=== PATIENT | female | born 1935 | race Caucasian/White ===

== ENCOUNTER 2017-07-26 17:38 | Inpatient (IN) | payer MEDICARE ==
[~2017-07-26] VITALS: Ht 157.5 cm; Wt 69.1 kg
[2017-07-26] MEDS ORDERED: MORPHINE SULFATE 2 MG/ML INJ ONE (17:43)
[2017-07-26 18:00] VITALS: PULSE 82
[2017-07-26] MEDS ORDERED: LACTULOSE SYRUP 20 GM/30 ML CUP PO PRN (18:00)
[2017-07-26] MEDS ORDERED: ONDANSETRON HCL 4 MG/2 ML VIAL IV PUSH PRN (18:00)
[2017-07-26] MEDS ORDERED: BISACODYL 10 MG SUPP RECTAL PRN (18:00)
[2017-07-26] MEDS ORDERED: MISCELLANEOUS NURSING INFORMATION XX SCH (18:00)
[2017-07-26] MEDS ORDERED: CHLORHEXIDINE GLUCONATE 2 % 1 PACK (2 CLOTHS) TOP PRN (18:00)
[2017-07-26] MEDS ORDERED: SENNOSIDES 8.6 MG TAB PO PRN (18:00)
[2017-07-26] MEDS ORDERED: RESP: ALBUTEROL 2.5 MG/IPRATROPIUM 0.5 MG NEB (PRN) INH (18:00)
[2017-07-26] MEDS ORDERED: MAGNESIUM HYDROXIDE SUSP 30 ML CUP PO PRN (18:00)
--- NOTE | 2017-07-26 18:19 | HHI.HP ---
HPI Service Critical Care Medicine Primary Care Physician No Primary Care Physician Admission Diagnosis Traumatic SDH, hypertensive urgency Diagnosis: Chief Complaint: Headache Travel History International Travel<30 Days: No Contact w/Intl Traveler <30 Da: No Traveled to Known Affected Are: No History of Present Illness 81 y/o woman tripped in her garden and hit her forehead. No LOC, syncope, seizures, vomiting. Presented to ED at [facility] in [place] and CT head revealed small right frontal SDH. BP 217/116. Arrived here GCS 15 around 1700. Significant history of carotid occlusive disease including bilateral endarterectomies and left stent. Her sx's were TIAs in the past. She is closely followed by a senior corporate accountant at [facility] who monitors and treats her hypertension and carotid disease. Review of Systems Constitutional: DENIES: Diaphoretic episodes, Fatigue, Fever, Weight gain, Weight loss, Chills, Dizziness, Change in appetite, Night Sweats Endocrine: DENIES: Abnorml menstrual pattern, Heat/cold intolerance, Polydipsia , Polyuria, Polyphagia Eyes: DENIES: Blurred vision, Diplopia, Eye inflammation, Eye pain, Vision loss , Photosensitivity, Double Vision Ears, nose, mouth, throat: DENIES: Tinnitus, Hearing loss, Vertigo, Nasal discharge, Oral lesions, Throat pain, Hoarseness, Ear Pain, Running Nose, Epistaxis, Sinus Pain, Toothache, Odynophagia Respiratory: DENIES: Apneas, Cough, Snoring, Wheezing, Hemoptysis, Sputum production, Shortness of breath Cardiovascular: DENIES: Chest pain, Palpitations, Syncope, Dyspnea on Exertion , PND, Lower Extremity Edema, Orthopnea, Claudication Gastrointestinal: DENIES: Abdominal pain, Black stools, Bloody stools, Constipation, Diarrhea, Nausea, Vomiting, Difficulty Swallowing, Anorexia Integumentary: DENIES: Abnormal pigmentation, Pruritus, Rash, Nail changes, Breast masses, Breast skin changes, Nipple discharge Neurologic: COMPLAINS OF: Headache Past Family Social History Allergies: Coded Allergies: adhesive tape (Verified Allergy, Unknown, 07/26/17) hydromorphone (Verified Allergy, Unknown, 07/26/17) naproxen (Verified Allergy, Unknown, 07/26/17) Uncoded Allergies: Sulfa Drugs (Allergy, Unknown, 07/26/17) Physical Exam Vital Signs Vital Signs Date Time Temp Pulse Resp B/P (MAP) Pulse Ox O2 Delivery O2 Flow Rate FiO2 07/26/17 17:48 14 Physical Exam Gen: Cooperative, alert. Head: Tender occiput region. Neck: Supple, airway widely patent. Left carotid bruit. Lungs: Clear. Heart: NL S1S2. RRR. No JVD. Abdomen: Soft no guarding. Extremities: Warm, well perfused. Neuro: Moves 4 limbs to command with 5/5 power. KIMBERLY, EOMs intact, shoulder shrug, tongue protrusion, smile, grimace normal. O X 3, alert. Speech clear. Caprini VTE Risk Assessment Caprini VTE Risk Assessment: Mod/High Risk (score >= 2) Caprini Risk Assessment Model Point Value = 1 Point Value = 2 Point Value = 3 Point Value = 5 Age 41-60 Minor surgery BMI > 25 kg/m2 Swollen legs Varicose veins or History of unexplained or recurrent spontaneous Oral contraceptives or hormone replacement Sepsis (< 1 month) Serious lung disease, including pneumonia (< 1 month) Abnormal pulmonary function Acute myocardial infarction Congestive heart failure (< 1 month) History of inflammatory bowel disease Medical patient at bed rest Age 61-74 Arthroscopic surgery Major open surgery (> 45 min) Laparoscopic surgery (> 45 min) Malignancy Confined to bed (> 72 hours) Immobilizing plaster cast Central venous access Age >= 75 History of VTE Family history of VTE Factor V Leiden Prothrombin [id number] Lupus anticoagulant Anticardiolipin antibodies Elevated serum homocysteine Heparin-induced thrombocytopenia Other congenital or acquired thrombophilia Stroke (< 1 month) Elective arthroplasty Hip, pelvis, or leg fracture Acute spinal cord injury (< 1 month) Prophylaxis Regimen Total Risk Factor Score Risk Level Prophylaxis Regimen 0-1 Low Early ambulation 2 Moderate Order ONE of the following: *Sequential Compression Device (SCD) *Heparin 5000 units SQ BID 3-4 Higher Order ONE of the following medications: *Heparin 5000 units SQ TID *Enoxaparin/Lovenox 40 mg SQ daily (WT < 150 kg, CrCl > 30 mL/min) *Enoxaparin/Lovenox 30 mg SQ daily (WT < 150 kg, CrCl > 10-29 mL/min) *Enoxaparin/Lovenox 30 mg SQ BID (WT < 150 kg, CrCl > 30 mL/min) AND/OR *Sequential Compression Device (SCD) 5 or more Highest Order ONE of the following medications: *Heparin 5000 units SQ TID (Preferred with Epidurals) *Enoxaparin/Lovenox 40 mg SQ daily (WT < 150 kg, CrCl > 30 mL/min) *Enoxaparin/Lovenox 30 mg SQ daily (WT < 150 kg, CrCl > 10-29 mL/min) *Enoxaparin/Lovenox 30 mg SQ BID (WT < 150 kg, CrCl > 30 mL/min) AND *Sequential Compression Device (SCD) Assessment and Plan Assessment and Plan Assessment: 1. Traumatic SDH. 2. Mechanical fall. 3. Hypertensive urgency. 4. S/P bilateral carotid endarterectomies, left carotid stent. Plan: 1. Neuro checks. 2. Maintain SBP < 160, restart home antihypertensives. 3. BMP a.m. 4. No chemical DVT Px. 5. SCDs. 6. Hold ASA and Cilostazol (Antiplatelet therapy) 7. Repeat head CT a.m. 8. Neurosurgery consult. Overall impression: Traumatic SDH following mechanical fall. We will hold antiplatelet meds tonight, but given the longstanding carotid occlusive disease history and numerous procedures we will restart ASA as soon as reasonable. Adolfo Brown MD Jul 26, 2017 18:19
[2017-07-26] MEDS ORDERED: MORPHINE SULFATE 2 MG/ML INJ IV PUSH PRN (18:45)
--- NOTE | 2017-07-26 19:25 | PD.CONS ---
History of Present Illness Service Neurosurgery Consult Requested By [employer] Agent-Dr. Brown Reason for Consult Right subdural hematoma Primary Care Physician No Primary Care Physician Diagnoses: History of Present Illness Ms. Soliz is an 81-year-old female transferred from [facility] where she presented after she tripped and fell while working in her garden. She struck her forehead but had no loss of consciousness. She has had no seizure activity reported. No emesis. She has been GCS 15 since initial evaluation at [facility] emergency room. She was noted to be hypertensive with systolic blood pressure 217. Review of Systems Constitutional: COMPLAINS OF: Fatigue, DENIES: Fever Eyes: DENIES: Blurred vision, Diplopia Ears, nose, mouth, throat: DENIES: Hearing loss, Vertigo Respiratory: DENIES: Shortness of breath Cardiovascular: DENIES: Chest pain Gastrointestinal: DENIES: Abdominal pain, Nausea Musculoskeletal: COMPLAINS OF: Joint pain, Muscle aches Hematologic/lymphatic: DENIES: Bruising Neurologic: COMPLAINS OF: Headache, DENIES: Abnormal gait Psychiatric: COMPLAINS OF: Confusion Past Family Social History Allergies: Coded Allergies: adhesive tape (Verified Allergy, Unknown, 07/26/17) hydromorphone (Verified Allergy, Unknown, 07/26/17) naproxen (Verified Allergy, Unknown, 07/26/17) Uncoded Allergies: Sulfa Drugs (Allergy, Unknown, 07/26/17) Past Medical History Hypertension Carotid atherosclerotic disease Previous TIA Past Surgical History Bilateral carotid endarterectomy Carotid stent Lumbar laminectomy Reported Medications She states she takes an antihypertensive medication. She cannot tell me the name Family History No significant cardiac disease, diabetes per patient. Social History Does not smoke cigarettes. No significant alcohol use Physical Exam Vital Signs Vital Signs Date Time Temp Pulse Resp B/P (MAP) Pulse Ox O2 Delivery O2 Flow Rate FiO2 07/26/17 18:00 82 07/26/17 17:48 14 Physical Exam GENERAL: This is a well-nourished, well-developed patient, no apparent distress. SKIN: No abrasions, contusion, rash noted. Skin warm and dry. HEAD: Mild tenderness parieto-occipital region EYES: Sclerae are clear and nonicteric ENT: No facial edema or ecchymosis. No periorbital edema. No CSF otorrhea or rhinorrhea. No palpable facial fracture or deformity. NECK: Trachea midline. No cervical spine tenderness. CARDIOVASCULAR: Regular rate and rhythm without murmurs, gallops, or rubs. RESPIRATORY: Clear to auscultation. Breath sounds equal bilaterally. No wheezes , rales, or rhonchi. GASTROINTESTINAL: Abdomen soft, non-tender, nondistended. No hepato-splenomegaly , or palpable masses. No guarding. MUSCULOSKELETAL: Extremities without cyanosis, or edema. No joint tenderness, or edema noted. No calf tenderness. Dorsalis pedis pulses 2+ bilateral NEUROLOGICAL: Awake and alert Oriented X person, hospital, month Speech is somewhat slow but clear Conversant and appropriate Follow simple commands with mild difficulty Answers questions appropriately Diminished judgment and insight Recent and remote memory are mildly impaired. No evidence of anxiety or depression Pupils are equal and reactive to accommodation. Extra-ocular movements, visual barrientos to confrontation, facial sensorimotor, tongue, palate, sternocleidomastoid testing, hearing to finger rub testing, and bilateral shoulder shrug are all intact. Sensation is intact to light touch in all extremities Strength normal major flexion and extension groups all extremities Cyn's absent bilaterally No ankle clonus Plantar responses absent bilateral Fine motor movements intact for her age in the upper extremities Imaging The patient's CT scan of the head from her [facility] images are reviewed by the undersigned. The study reveals a small right frontal acute subdural hematoma without significant mass effect. No definite skull fracture. No pneumocephalus or hydrocephalus. Assessment and Plan Assessment and Plan Impression: Traumatic brain injury HTN Plan: D/W patient and her daughter in [facility] today Continue [facility] neuro checks Non chemical DVT prophylaxis F/U CT Head in AM Continue HTN meds Rene Harrell MD Jul 26, 2017 19:25
[2017-07-26 20:00] VITALS: BP 192/77; PULSE 80; RESP 16; TEMP 99.1; O2SAT 94
[2017-07-26] MEDS: cloNIDine HCL 0.1 MG TAB PO PRN (20:22)
[2017-07-26] MEDS: ACETAMINOPHEN 325 MG TAB PO PRN (20:22)
[2017-07-26] MEDS: FAMOTIDINE 20 MG TAB PO SCH (20:22)
[2017-07-26] MEDS: DOCUSATE SODIUM 50 MG/SENNA 8.6 MG TAB PO SCH (20:22)
[2017-07-26] MEDS: traZODone HCL 50 MG TAB PO SCH (20:22)
[2017-07-26] MEDS: SODIUM CHLOR 0.9% 1000 ML INJ 1,000 ML IV SCH (20:53)
[2017-07-26 22:00] VITALS: PULSE 70
[2017-07-26] MEDS: LABETALOL HCL 100 MG/20 ML VIAL IV PRN (22:55)
[2017-07-27] VITALS (14 sets, daily range): BP systolic 112–153; BP diastolic 53–69; PULSE 61–76; RESP 12–18; TEMP 98.1–98.9; O2SAT 95–100
[2017-07-27] MEDS: CHLORHEXIDINE GLUCONATE 2 % 1 PACK (2 CLOTHS) TOP SCH (04:08)
[2017-07-27] MEDS: ACETAMINOPHEN 325 MG TAB PO PRN (04:25)
[2017-07-27 05:25] LABS: CALCIUM 8.4 MG/DL (8.5-10.1); CREATININE 1.13 MG/DL (0.50-1.00); MAGNESIUM 1.9 MG/DL (1.5-2.5)
--- NOTE | 2017-07-27 05:52 | RADRPT ---
EXAM DATE/TIME: 07/27/2017 05:14 [facility] COMPARISON: No previous studies available for comparison. INDICATIONS : Follow up trauma; frontal hematoma. RADIATION DOSE: 56.35 CTDIvol (mGy) MEDICAL HISTORY : Cardiovascular disease. TBI SURGICAL HISTORY : None. ENCOUNTER: Initial ACUITY: 1 day PAIN SCALE: Non-responsive LOCATION: cranial TECHNIQUE: Multiple contiguous axial images were obtained of the head. Using automated exposure control and adj ustment of the mA and/or kV according to patient size, radiation dose was kept as low as reasonably a chievable to obtain optimal diagnostic quality images. DICOM format image data is available electro nically for review and comparison. FINDINGS: CEREBRUM: There is a right frontal mid convexity extra-axial hematoma, likely subdural measuring 5 mm. Associat ed subarachnoid blood products are noted in the frontoparietal mid to low convexities bilaterally. Th ere is also trace intraventricular blood products. Moderate diffuse cerebral atrophy. The ventricles are normal for degree of atrophy. Moderate periventricular white matter hypodensities. No midline veronica ft. POSTERIOR FOSSA: The cerebellum and brainstem are intact. The 4th ventricle is midline. The cerebellopontine angle i s unremarkable. EXTRACRANIAL: The visualized portion of the orbits is intact. SKULL: The calvaria is intact. No evidence of skull fracture. CONCLUSION: 1. Focal 5 mm right frontal mid convexity extra-axial hematoma, likely subdural. 2. Subarachnoid products in the frontoparietal mid to low convexities bilaterally. 3. Trace intraventricular hemorrhage. 4. No midline shift, hydrocephalus, or herniation. Eris Rose MD on July 27, 2017 at 5:46 Board Certified Radiologist. This report was verified electronically.
[2017-07-27] MEDS ORDERED: SODIUM CHLORID 0.9% 500 ML INJ 500 ML IV ONE (07:30)
[2017-07-27] MEDS: LOSARTAN 50 MG TAB PO SCH (09:00)
[2017-07-27] MEDS: DOCUSATE SODIUM 50 MG/SENNA 8.6 MG TAB PO SCH ×2 (09:18→21:00)
[2017-07-27] MEDS: FAMOTIDINE 20 MG TAB PO SCH ×2 (09:19→21:00)
--- NOTE | 2017-07-27 09:41 | HHI.NSPN ---
(Sadiq Aguilar) History Chief Complaint: Frontal headache (Sadiq Aguilar) Interval History 07/26: Ms. Soliz is an 81-year-old female transferred from [facility] where she presented after she tripped and fell while working in her garden. She struck her forehead but had no loss of consciousness. She has had no seizure activity reported. No emesis. She has been GCS 15 since initial evaluation at [facility] emergency room. She was noted to be hypertensive with systolic blood pressure 217. 07/27: The patient appears asleep but opens her eyes to voice. She says she is doing good but does have a frontal headache across the forehead. She denies any dizziness or double or blurry vision. She denies any pain, numbness, tingling or weakness to the extremities. Upon evaluation the patient is essentially intact but does appear to have some weakness to the right deltoid. She does endorse some photosensitivity when her pupils are examined. (Sadiq Aguilar) Exam Results 07/25/17 07/25/17 07/26/17 07/26/17 07/27/17 07/27/17 06:00 18:00 06:00 18:00 06:00 18:00 Intake Total 0 ml 40 ml Output Total 250 ml Balance -250 ml 40 ml Intake Oral 0 ml 40 ml Output Urine Total 250 ml # Voids 1 Vital Signs Date Time Temp Pulse Resp B/P (MAP) Pulse Ox O2 Delivery O2 Flow Rate FiO2 07/27/17 06:00 61 07/27/17 04:00 70 07/27/17 04:00 98.3 68 18 118/57 (77) 97 07/27/17 02:00 61 07/27/17 02:00 61 07/27/17 00:00 98.9 63 18 112/53 (72) 98 07/27/17 00:00 63 07/27/17 00:00 63 07/26/17 22:00 70 07/26/17 22:00 70 07/26/17 20:00 80 07/26/17 20:00 99.1 80 16 192/77 (115) 94 07/26/17 20:00 80 07/26/17 19:00 96 Nasal Cannula 3.00 07/26/17 18:00 82 07/26/17 17:48 14 (Sadiq Aguilar) Physical Examination GENERAL: Appears asleep but opens eyes to voice. Normal affect. Readily interacts. No apparent distress. HEENT: Normocephalic, atraumatic. PERRLA 3 mm brisk, EOMI. No otorrhea or rhinorrhea noted. MMM & pink, tongue midline to protrusion. MUSCULOSKELETAL: ARAGON spontaneously w/o difficulty. Extremities NTTP. No evident clubbing or deformity. NEUROLOGICAL: AAOx3. Speech clear & appropriate. Follows simple commands w/o difficulty. CN II through XII appear grossly intact. Sensation is intact to light touch to all extremities. Motor strength to the right deltoid appears to be 3/5 o/w 5/5 to all major flexion & extension muscle groups, to include wrist flexors & extensors and hand intrinsics & extrinsics. Weakness may be related to not fully understanding the command but was able to do it with the left but did require repeated coaxing. (Sadiq Aguilar) Lab, Micro, Other Results Recent Impressions Head CT 07/27/17 0600 Signed Impressions: Service Date/Time: July 05:14 - CONCLUSION: 1. Focal 5 mm right frontal mid convexity extra-axial hematoma, likely subdural. 2. Subarachnoid products in the frontoparietal mid to low convexities bilaterally. 3. Trace intraventricular hemorrhage. 4. No midline shift, hydrocephalus, or herniation. Eris Rose MD Laboratory Tests Test 07/27/17 04:22 Blood Urea Nitrogen 9 MG/DL Creatinine 1.13 MG/DL Random Glucose 84 MG/DL Calcium Level 8.4 MG/DL Magnesium Level 1.9 MG/DL Sodium Level 139 MEQ/L Potassium Level 5.0 MEQ/L Chloride Level 105 MEQ/L Carbon Dioxide Level 28.0 MEQ/L Anion Gap 6 MEQ/L Estimat Glomerular Filtration Rate 46 ML/MIN (Sadiq Aguilar) Medical Decision Making Impression and Plan Impression: Traumatic brain injury HTN Patient is doing well this morning and is oriented to person, place & time. There is some questionable right deltoid weakness o/w no sensorimotor deficits are noted. Hypertension improved. Reviewed labs for today. Sodium 139. Decreased renal function. CT brain demonstrates right frontal subdural haematoma, bilateral frontoparietal subarachnoid haemorrhage w/trace intraventricular haemorrhage. No midline shift, hydrocephalus or herniation. 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 Neuro checks. Stat CT brain for any decline in neuro status. Continue antihypertensives. Hold pharmacologic DVT prophylaxis. Mechanical DVT prophylaxis. Stress ulcer prophylaxis. Recommend keeping the patient in ISC for another day. Mobilise patient w/assistance. Physical & Occupational Therapy eval & tx. Heart healthy diet. (Sadiq Aguilar) Attending Statement The exam, history, and the medical decision-making described in the above note were completed with the assistance of the mid-level provider. I reviewed and agree with the findings presented. I attest that I had a [id number] encounter with the patient on the same day, and personally performed and documented my assessment and findings in the medical record. Patient a little less alert on my examination of 07/27/2017 She is sitting up in a chair. Her family is in the room. She is eating a little bit. Complains of persistent headache Speech is slow but clear. A little less conversant today. Remains with mild confusion. Moves all extremities with mostly 3-4/5 strength but not following commands very well. Discussed with family. She does not have a significant focal deficit on today exam. She apparently has some pain medications within the hour prior to examination and has been a little less alert since then. Continue close neurologic checks. Follow-up CT scan pending any significant further decline in neurologic function. Discussed with family in the patient's room on 07/27/2017 (Rene Harrell MD) Sadiq Aguilar Jul 27, 2017 09:41 Rene Harrell MD Jul 28, 2017 20:08
[2017-07-27] MEDS: SODIUM CHLOR 0.9% 1000 ML INJ 1,000 ML IV SCH ×2 (10:39→20:40)
[2017-07-27] MEDS: LABETALOL HCL 100 MG/20 ML VIAL IV PRN ×2 (18:21→23:21)
[2017-07-27] MEDS: traZODone HCL 50 MG TAB PO SCH (21:00)
[2017-07-27] MEDS: cloNIDine HCL 0.1 MG TAB PO PRN (21:08)
[2017-07-28] VITALS (16 sets, daily range): BP systolic 127–163; BP diastolic 59–71; PULSE 56–74; RESP 12–22; TEMP 97.9–98.7; O2SAT 68–98
[2017-07-28] MEDS: CHLORHEXIDINE GLUCONATE 2 % 1 PACK (2 CLOTHS) TOP SCH (03:20)
[2017-07-28] MEDS: LABETALOL HCL 100 MG/20 ML VIAL IV PRN ×2 (04:01→22:53)
[2017-07-28] MEDS: DOCUSATE SODIUM 50 MG/SENNA 8.6 MG TAB PO SCH ×2 (08:13→20:57)
[2017-07-28] MEDS: LOSARTAN 50 MG TAB PO SCH (08:13)
[2017-07-28] MEDS: FAMOTIDINE 20 MG TAB PO SCH ×2 (08:13→20:57)
--- NOTE | 2017-07-28 08:48 | HHI.CCPN ---
Subjective Remarks/Hospital Course Note for 07/27: 81 y/o woman tripped in her garden and hit her forehead. No LOC, syncope, seizures, vomiting. Presented to ED at [facility] in [place] and CT head revealed small right frontal SDH. BP 217/116. Arrived here GCS 15 around 1700. Significant history of carotid occlusive disease including bilateral endarterectomies and left stent. Her sx's were TIAs in the past. She is closely followed by a flame planer at [facility] who monitors and treats her hypertension and carotid disease. 07/27: Headache persists. Neuro exam grossly intact. Objective Vital Signs Date Time Temp Pulse Resp B/P (MAP) Pulse Ox O2 Delivery O2 Flow Rate FiO2 07/28/17 08:20 14 07/28/17 07:27 96 Nasal Cannula 2.00 07/28/17 06:16 61 07/28/17 04:07 98.7 135/71 (92) Intake and Output 07/28/17 07/28/17 07/29/17 08:00 16:00 00:00 Intake Total 240 ml Balance 240 ml Result Diagram: 07/27/17 0422 Objective Remarks Gen: Cooperative, alert. Head: Tender occiput region. Neck: Supple, airway widely patent. Left carotid bruit. Lungs: Clear. Heart: NL S1S2. RRR. No JVD. Abdomen: Soft no guarding. Extremities: Warm, well perfused. Neuro: Moves 4 limbs to command with 5/5 power. KIMBERLY, EOMs intact, shoulder shrug, tongue protrusion, smile, grimace normal. O X 3, alert. Speech clear. A/P Assessment and Plan Assessment: 1. Traumatic SDH. 2. Mechanical fall. 3. Hypertensive urgency. 4. S/P bilateral carotid endarterectomies, left carotid stent. Plan: 1. Neuro checks. 2. Maintain SBP < 160, restart home antihypertensives. 3. BMP a.m. 4. No chemical DVT Px. 5. SCDs. 6. Hold ASA and Cilostazol (Antiplatelet therapy) 7. Repeat head CT a.m. 8. Neurosurgery consult -> done. Overall impression: Traumatic SDH following mechanical fall. We will continue to hold antiplatelet meds tonight, but given the longstanding carotid occlusive disease history and numerous procedures we will restart ASA as soon as reasonable. Adolfo Brown MD Jul 28, 2017 08:47
--- NOTE | 2017-07-28 08:50 | HHI.CCPN ---
Subjective Remarks/Hospital Course Note for 07/28: 81 y/o woman tripped in her garden and hit her forehead. No LOC, syncope, seizures, vomiting. Presented to ED at [facility] in [place] and CT head revealed small right frontal SDH. BP 217/116. Arrived here GCS 15 around 1700. Significant history of carotid occlusive disease including bilateral endarterectomies and left stent. Her sx's were TIAs in the past. 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 07/27: Headache persists. Neuro exam grossly intact. 07/28: Headache persists but she sleeps between medications - will reduce analgesics. Objective Vital Signs Date Time Temp Pulse Resp B/P (MAP) Pulse Ox O2 Delivery O2 Flow Rate FiO2 07/28/17 08:20 14 07/28/17 07:27 96 Nasal Cannula 2.00 07/28/17 06:16 61 07/28/17 04:07 98.7 135/71 (92) Intake and Output 07/28/17 07/28/17 07/29/17 08:00 16:00 00:00 Intake Total 240 ml Balance 240 ml Result Diagram: 07/27/17 0422 Objective Remarks Gen: Cooperative, alert. Head: Tender occiput region. Neck: Supple, airway widely patent. Left carotid bruit. Lungs: Clear. Comfortable pattern, no adventitious sounds. Heart: NL S1S2. RRR. No JVD. Abdomen: Soft no guarding. Extremities: Warm, well perfused. Neuro: Moves 4 limbs to command with 5/5 power. KIMBERLY, EOMs intact, shoulder shrug, tongue protrusion, smile, grimace normal. O X 3, alert. Speech clear. Lethargic from meds. A/P Assessment and Plan Assessment: 1. Traumatic SDH. 2. Mechanical fall. 3. Hypertensive urgency. 4. S/P bilateral carotid endarterectomies, left carotid stent. 5. Headache. Plan: 1. Neuro checks. 2. Maintain SBP < 160, restart home antihypertensives. 3. BMP a.m. 4. No chemical DVT Px. 5. SCDs. 6. Hold ASA and Cilostazol (Antiplatelet therapy) 7. Repeat head CT a.m. 8. Neurosurgery consult -> done. 9. Reduce analgesics. Overall impression: Traumatic SDH following mechanical fall. We will continue to hold antiplatelet meds tonight, but given the longstanding carotid occlusive disease history and numerous procedures we will restart ASA as soon as reasonable. Adolfo Brown MD Jul 28, 2017 08:50
--- NOTE | 2017-07-28 09:53 | HHI.NSPN ---
(Sadiq Aguilar) History Chief Complaint: Frontal headache (Sadiq Aguilar) Interval History 07/26: Ms. Soliz is an 81-year-old female transferred from [facility] where she presented after she tripped and fell while working in her garden. She struck her forehead but had no loss of consciousness. She has had no seizure activity reported. No emesis. She has been GCS 15 since initial evaluation at [facility] emergency room. She was noted to be hypertensive with systolic blood pressure 217. 07/27: The patient appears asleep but opens her eyes to voice. She says she is doing good but does have a frontal headache across the forehead. She denies any dizziness or double or blurry vision. She denies any pain, numbness, tingling or weakness to the extremities. Upon evaluation the patient is essentially intact but does appear to have some weakness to the right deltoid. She does endorse some photosensitivity when her pupils are examined. 07/28: This morning the patient is sitting up in a chair. She says she is doing well. She does have pain that she rates a 5 out of 10 and has ice to the scalp at the crown. She denies any headache, dizziness or double or blurry vision. She also denies any pain, numbness, tingling or weakness to the extremities. The right deltoid is stronger today, otherwise her neuro exam is stable. (Sadiq Aguilar) Exam Results 07/26/17 07/26/17 07/27/17 07/27/17 07/28/17 07/28/17 06:00 18:00 06:00 18:00 06:00 18:00 Intake Total 0 ml 40 ml 1740 ml 240 ml Output Total 250 ml 350 ml Balance -250 ml 40 ml 1390 ml 240 ml Intake Oral 0 ml 40 ml 240 ml 240 ml IV Total 1500 ml Output Urine Total 250 ml 350 ml # Voids 1 2 # Bowel Movements 0 0 Vital Signs Date Time Temp Pulse Resp B/P (MAP) Pulse Ox O2 Delivery O2 Flow Rate FiO2 07/28/17 08:20 14 07/28/17 07:27 96 Nasal Cannula 2.00 07/28/17 07:00 97 Nasal Cannula 2.00 07/28/17 06:16 61 07/28/17 04:07 98.7 69 13 135/71 (92) 68 07/28/17 04:06 69 07/28/17 02:02 74 07/28/17 01:22 74 07/28/17 00:00 98.7 74 17 140/60 (86) 97 07/27/17 22:39 98.6 71 17 153/69 (97) 95 07/27/17 22:02 76 07/27/17 20:33 96 Nasal Cannula 2.00 07/27/17 19:00 96 Nasal Cannula 3.00 07/27/17 18:35 14 07/27/17 18:00 74 07/27/17 16:32 98 Nasal Cannula 2.00 07/27/17 16:00 98.4 68 14 147/67 (93) 98 07/27/17 16:00 68 07/27/17 14:00 67 07/27/17 12:00 64 07/27/17 12:00 98.2 64 12 123/56 (78) 95 07/27/17 10:00 65 07/27/17 08:00 64 07/27/17 08:00 98.1 64 12 114/53 (73) 100 07/27/17 07:00 99 Nasal Cannula 3.00 07/27/17 06:00 61 07/27/17 04:00 70 07/27/17 04:00 98.3 68 18 118/57 (77) 97 07/27/17 02:00 61 07/27/17 02:00 61 07/27/17 00:00 98.9 63 18 112/53 (72) 98 07/27/17 00:00 63 07/27/17 00:00 63 07/26/17 22:00 70 07/26/17 22:00 70 07/26/17 20:00 80 07/26/17 20:00 99.1 80 16 192/77 (115) 94 07/26/17 20:00 80 07/26/17 19:00 96 Nasal Cannula 3.00 07/26/17 18:00 82 07/26/17 17:48 14 (Sadiq Aguilar) Physical Examination GENERAL: Awake & alert, sitting in the chair visiting w/family. Normal affect. Readily interacts. No apparent distress. HEENT: Normocephalic, scalp mildly TTP at the crown and occiput. PERRLA 3 mm brisk, EOMI. MMM & pink, tongue midline to protrusion. MUSCULOSKELETAL: ARAGON spontaneously w/o difficulty. Extremities NTTP. No evident clubbing or deformity. NEUROLOGICAL: AAOx3. Speech clear & appropriate. Follows simple commands w/o difficulty. CN II through XII appear grossly intact. Sensation is intact to light touch to all extremities. Motor strength is 5/5 to all major flexion & extension muscle groups. (Sadiq Aguilar) Lab, Micro, Other Results Recent Impressions Head CT 07/27/17 0600 Signed Impressions: Service Date/Time: July 05:14 - CONCLUSION: 1. Focal 5 mm right frontal mid convexity extra-axial hematoma, likely subdural. 2. Subarachnoid products in the frontoparietal mid to low convexities bilaterally. 3. Trace intraventricular hemorrhage. 4. No midline shift, hydrocephalus, or herniation. Eris Rose MD Laboratory Tests Test 07/27/17 04:22 Blood Urea Nitrogen 9 MG/DL Creatinine 1.13 MG/DL Random Glucose 84 MG/DL Calcium Level 8.4 MG/DL Magnesium Level 1.9 MG/DL Sodium Level 139 MEQ/L Potassium Level 5.0 MEQ/L Chloride Level 105 MEQ/L Carbon Dioxide Level 28.0 MEQ/L Anion Gap 6 MEQ/L Estimat Glomerular Filtration Rate 46 ML/MIN (Sadiq Aguilar) Medical Decision Making Impression and Plan Impression: Traumatic brain injury HTN Patient continues to do well. She is oriented to person, place & time and no sensorimotor deficits are noted. CT brain demonstrates right frontal subdural haematoma, bilateral frontoparietal subarachnoid haemorrhage w/trace intraventricular haemorrhage. No midline shift, hydrocephalus or herniation. Plan: Discussed plan of care w/patient and family. Discussed plan of care w/Nursing. Primary management per Saw Grinder. Neuro checks. Stat CT brain for any decline in neuro status. Continue antihypertensives. Hold pharmacologic DVT prophylaxis. Mechanical DVT prophylaxis. Stress ulcer prophylaxis. Mobilise patient w/assistance. Physical & Occupational Therapy eval & tx. Heart healthy diet. Patient may be transferred to a regular med/surg floor from Neurosurgery's perspective. The patient is able to be discharged either or if medically indicated. She will need to have a repeat CT brain in 2 weeks which may be done through our office if she is still in the [facility] or her PCP if back home in [place]. (Sadiq Aguilar) Attending Statement The exam, history, and the medical decision-making described in the above note were completed with the assistance of the mid-level provider. I reviewed and agree with the findings presented. I attest that I had a [id number] encounter with the patient on the same day, and personally performed and documented my assessment and findings in the medical record. Ms. Soliz is much more alert on my examination of compared to prior day. She is sitting up in a chair again. Awake and alert conversant. Mild slowing of speech, thought processes. Remains with mild confusion but answers most questions appropriately and follows simple commands well. No focal cranial nerve or extremity sensorimotor deficit noted today. Still has headache. Discussed with family and patient in the room on 07/28/2017 Stable for discharge home from neurosurgical standpoint. It would be best to check a CT scan of the head as an outpatient within the next couple of weeks. Signs and symptoms to watch for discussed with the family. All questions answered (Rene Harrell MD) Sadiq Aguilar Jul 28, 2017 09:53 Rene Harrell MD Jul 28, 2017 20:10
[2017-07-28] MEDS: SODIUM CHLOR 0.9% 1000 ML INJ 1,000 ML IV SCH (10:37)
[2017-07-28] MEDS: oxyCODONE/ACETAMINOPHEN 5 MG/325 MG TAB PO PRN ×3 (11:26→22:52)
[2017-07-28] MEDS ORDERED: PILL SPLITTER OTHER PRN (11:30)
[2017-07-28] MEDS ORDERED: SODIUM CHLORIDE 0.65% NASAL DRP/SPRY 30 ML BTL EACH NARE ONE (11:45)
[2017-07-28] MEDS: traZODone HCL 50 MG TAB PO PRN (20:57)
[2017-07-28] MEDS: cloNIDine HCL 0.1 MG TAB PO PRN (22:52)
[2017-07-29] VITALS (18 sets, daily range): BP systolic 148–197; BP diastolic 68–81; PULSE 56–77; RESP 11–24; TEMP 98–98.4; O2SAT 92–97
[2017-07-29] MEDS: CHLORHEXIDINE GLUCONATE 2 % 1 PACK (2 CLOTHS) TOP SCH (03:45)
[2017-07-29] MEDS: SODIUM CHLOR 0.9% 1000 ML INJ 1,000 ML IV SCH (04:21)
[2017-07-29] MEDS: FAMOTIDINE 20 MG TAB PO SCH ×2 (09:07→21:00)
[2017-07-29] MEDS: DOCUSATE SODIUM 50 MG/SENNA 8.6 MG TAB PO SCH ×2 (09:08→21:00)
[2017-07-29] MEDS: LOSARTAN 50 MG TAB PO SCH (09:08)
--- NOTE | 2017-07-29 10:13 | HHI.PR ---
Subjective Remarks in no acute distress. denies headache or pain. BP trend noted. d/w the RN and no acute issues over night. Objective Vitals Vital Signs Date Time Temp Pulse Resp B/P (MAP) Pulse Ox O2 Delivery O2 Flow Rate FiO2 07/29/17 08:15 97 Nasal Cannula 2.00 07/29/17 07:50 68 07/29/17 07:00 98 Nasal Cannula 2.00 07/29/17 04:20 61 18 159/71 (100) 93 07/29/17 04:19 61 07/29/17 02:46 65 07/29/17 00:41 97 Nasal Cannula 2.00 07/29/17 00:06 98.0 69 15 161/70 (100) 97 07/29/17 00:06 70 07/28/17 22:03 65 07/28/17 21:54 97.9 70 22 163/70 (101) 96 07/28/17 21:53 66 07/28/17 21:51 98 Nasal Cannula 2.00 07/28/17 18:00 56 07/28/17 16:00 66 07/28/17 16:00 98.6 66 12 140/65 (90) 94 07/28/17 14:00 62 07/28/17 12:35 15 07/28/17 12:00 98.4 62 18 131/60 (83) 98 07/28/17 12:00 62 I/O 07/28/17 07/28/17 07/28/17 07/29/17 07/29/17 07/29/17 07:00 15:00 23:00 07:00 15:00 23:00 Intake Total 240 ml 480 ml 240 ml Output Total 350 ml Balance 240 ml 130 ml 240 ml Intake Oral 240 ml 480 ml 240 ml Output Urine Total 350 ml # Voids 2 1 2 # Bowel Movements 0 0 Result Diagram: 07/27/17 0422 Imaging Last Impressions Head CT 07/27/17 0600 Signed Impressions: Service Date/Time: July 05:14 - CONCLUSION: 1. Focal 5 mm right frontal mid convexity extra-axial hematoma, likely subdural. 2. Subarachnoid products in the frontoparietal mid to low convexities bilaterally. 3. Trace intraventricular hemorrhage. 4. No midline shift, hydrocephalus, or herniation. Eris Rose MD Objective Remarks GENERAL: This is a well-nourished, well-developed patient, in no apparent distress. CARDIOVASCULAR: Regular rate and regular rhythm without murmurs, gallops, or rubs. RESPIRATORY: Clear to auscultation. Breath sounds equal bilaterally. No wheezes , rales, or rhonchi. GASTROINTESTINAL: Abdomen soft, non-tender, nondistended. Normal, active bowel sounds MUSCULOSKELETAL: Extremities without clubbing, cyanosis, or edema. NEURO: awake and alert. Medications and IVs Inpatient Medications Acetaminophen (Tylenol) 650 mg Q6H PRN PO PAIN 1-3 AND/OR FEVER >101F Last administered on 07/27/17at 04:25; Start 07/26/17 at 18:00 Albuterol/ Ipratropium (Duoneb Neb) 1 ampule Q4HR NEB PRN INH WHEEZING; Start 07/26/17 at 18:00 Bisacodyl (Dulcolax Supp) 10 mg DAILY PRN RECTAL SEVERE CONSITIPATION; Start at 18:00 Chlorhexidine Gluconate (Chlorhexidine 2% Cloth) 3 pack UNSCH PRN TOP HYGIENIC CARE; Start 07/26/17 at 18:00 Clonidine (Catapres) 0.1 mg Q6H PRN PO SBP > 160 Last administered on 07/28/17at 22:52; Start 07/26/17 at 19:00 Famotidine (Pepcid) 10 mg Q12HR PO Last administered on 07/29/17at 09:07; Start 07/27/17 at 21:00 Fentanyl Citrate (fentaNYL INJ) 50 mcg Q1H PRN IV PUSH Pain scale 8-10 &/or sedation Last administered on 07/29/17 05:05; Start 07/26/17 at 18:00 Labetalol HCl (Trandate Inj) 20 mg Q2H PRN IV SBP > 160` Last administered on at 22:53; Start 07/26/17 at 22:45 Lactulose (Lactulose Liq) 30 ml DAILY PRN PO SEVERE CONSITIPATION; Start at 18:00 Losartan Potassium (Cozaar) 100 mg DAILY PO Last administered on 07/29/17at 09:08 ; Start 07/27/17 at 09:00 Magnesium Hydroxide (Milk Of Vero Liq) 30 ml Q12H PRN PO Mild constipation ; Start 07/26/17 at 18:00 Miscellaneous (Pill Splitter) 1 ea UNSCH PRN OTHER SEE LABEL COMMENTS; Start at 11:30 Miscellaneous Information 1 Q361D XX Last administered on 07/26/17at 18:00; Start 07/26/17 at 18:00 Morphine Sulfate (Morphine Inj) 2 mg Q2H PRN IV PUSH PAIN SCALE 4 TO 7 Last administered on 07/28/17at 08:14; Start 07/26/17 at 18:45; Stop 07/28/17 at 08:46; Status DC Ondansetron HCl (Zofran Inj) 4 mg Q6H PRN IV PUSH NAUSEA OR VOMITING; Start at 18:00 Oxycodone/ Acetaminophen (Percocet 5-325 Mg) 1 tab Q6H PRN PO Pain 6-10 Last administered on 07/28/17at 22:52; Start 07/28/17 at 11:30 Senna/Docusate Sodium ([place]-Colace) 1 tab BID PO Last administered on 07/29/17at 09:08; Start 07/26/17 at 21:00 Sennosides (Senokot) 17.2 mg Q12H PRN PO Moderate constipation; Start 07/26/17 at 18:00 Sodium Chloride (Baby [place] Saline 0.65% Malcolm Drp/ [place]) 6 drop ONCE ONCE EACH NARE ; Start 07/28/17 at 11:45; Stop 07/28/17 at 13:45; Status DC Trazodone HCl (Desyrel) 25 mg HS PRN PO insomnia Last administered on 07/28/17at 20:57; Start 07/28/17 at 21:00 A/P Assessment and Plan A/P 1. Traumatic SDH/2. Mechanical fall. continue with neuro-checks- cleared by neurosurgery for discharge with repeat CT head in two weeks. continue PT. 2. Hypertensive urgency- improved but BP still not well controlled. continue Losartan- add amlodipine and continue to monitor and adjust the regimen as needed. 3. S/P bilateral carotid endarterectomies, left carotid stent. DVT prophylaxis with SCD's- no chemical prophylaxis due to cerebral bleed. transfer to telemetry. Discharge Planning dc home tomorrow if BP better. case management for HHC. Trung Tran MD Jul 29, 2017 10:13
--- NOTE | 2017-07-29 10:14 | HHI.FF ---
Face to Face Verification Diagnosis: (1) Subdural hematoma Physical Therapy Order: Evaluate and Treat Occupational Therapy Order: Evaluate and Treat Home Health Nursing Order: Medical education Signs/symptoms of disease process Medication education-adverse effect Nursing assessment with vital signs I have seen patient Suzanne Soliz on 07/29/17. My clinical findings support the need for the requested home health care services because: Ltd mobility - disease progression I certify that my clinical findings support that this patient is homebound because: Unsteady gait/balance Trung Tran MD Jul 29, 2017 10:14
[2017-07-29] MEDS ORDERED: amLODIPine BESYLATE 5 MG TAB PO SCH (10:15)
[2017-07-29] MEDS: oxyCODONE/ACETAMINOPHEN 5 MG/325 MG TAB PO PRN ×3 (10:15→23:46)
--- NOTE | 2017-07-29 11:10 | HHI.NSPN ---
(Jamee Laughlin) Note Status Status: Progress Note (Jamee Laughlin) Interval History Interval History 07/26: Ms. Soliz is an 81-year-old female transferred from [facility] where she presented after she tripped and fell while working in her garden. She struck her forehead but had no loss of consciousness. She has had no seizure activity reported. No emesis. She has been GCS 15 since initial evaluation at [facility] emergency room. She was noted to be hypertensive with systolic blood pressure 217. 07/27: The patient appears asleep but opens her eyes to voice. She says she is doing good but does have a frontal headache across the forehead. She denies any dizziness or double or blurry vision. She denies any pain, numbness, tingling or weakness to the extremities. Upon evaluation the patient is essentially intact but does appear to have some weakness to the right deltoid. She does endorse some photosensitivity when her pupils are examined. 07/28: This morning the patient is sitting up in a chair. She says she is doing well. She does have pain that she rates a 5 out of 10 and has ice to the scalp at the crown. She denies any headache, dizziness or double or blurry vision. She also denies any pain, numbness, tingling or weakness to the extremities. The right deltoid is stronger today, otherwise her neuro exam is stable. 07/29: sitting up in chair, some headaches, but ambulated today per family. blood pressure still elevated (Jamee Laughlin) Labs, Micro, & Vital Signs Results Date Time Temp Pulse Resp B/P (MAP) Pulse Ox O2 Delivery O2 Flow Rate FiO2 07/29/17 09:00 65 24 174/74 (107) 97 07/29/17 08:15 97 Nasal Cannula 2.00 07/29/17 08:00 98.1 65 13 197/77 (117) 97 07/29/17 08:00 65 07/29/17 07:50 68 07/29/17 07:00 98 Nasal Cannula 2.00 07/29/17 04:20 61 18 159/71 (100) 93 07/29/17 04:19 61 07/29/17 02:46 65 07/29/17 00:41 97 Nasal Cannula 2.00 07/29/17 00:06 98.0 69 15 161/70 (100) 97 07/29/17 00:06 70 07/28/17 22:03 65 07/28/17 21:54 97.9 70 22 163/70 (101) 96 07/28/17 21:53 66 07/28/17 21:51 98 Nasal Cannula 2.00 07/28/17 18:00 56 07/28/17 16:00 66 07/28/17 16:00 98.6 66 12 140/65 (90) 94 07/28/17 14:00 62 07/28/17 12:35 15 07/28/17 12:00 98.4 62 18 131/60 (83) 98 07/28/17 12:00 62 07/30/17 07:00 Intake Total 240 ml Balance 240 ml Constitutional Vital Signs Date Time Temp Pulse Resp B/P (MAP) Pulse Ox O2 Delivery O2 Flow Rate FiO2 07/29/17 09:00 65 24 174/74 (107) 97 07/29/17 08:15 97 Nasal Cannula 2.00 07/29/17 08:00 98.1 65 13 197/77 (117) 97 07/29/17 08:00 65 07/29/17 07:50 68 07/29/17 07:00 98 Nasal Cannula 2.00 07/29/17 04:20 61 18 159/71 (100) 93 07/29/17 04:19 61 07/29/17 02:46 65 07/29/17 00:41 97 Nasal Cannula 2.00 07/29/17 00:06 98.0 69 15 161/70 (100) 97 07/29/17 00:06 70 07/28/17 22:03 65 07/28/17 21:54 97.9 70 22 163/70 (101) 96 07/28/17 21:53 66 07/28/17 21:51 98 Nasal Cannula 2.00 07/28/17 18:00 56 07/28/17 16:00 66 07/28/17 16:00 98.6 66 12 140/65 (90) 94 07/28/17 14:00 62 07/28/17 12:35 15 07/28/17 12:00 98.4 62 18 131/60 (83) 98 07/28/17 12:00 62 07/30/17 07:00 Intake Total 240 ml Balance 240 ml (Jamee Laughlin) Review of Systems Constitutional: DENIES: Fever Cardiovascular: DENIES: Chest pain Neurologic: COMPLAINS OF: Headache, DENIES: Localized weakness, Paresthesias, Seizures (Jamee Laughlin) Physical Exam GENERAL: Awake & alert, sitting in the chair w/family. Normal affect. Readily interacts. No apparent distress. HEENT: Normocephalic, scalp mildly TTP at the crown and occiput. PERRLA 3 mm brisk, EOMI. MMM & pink, tongue midline to protrusion. MUSCULOSKELETAL: ARAGON spontaneously w/o difficulty. Extremities NTTP. No evident clubbing or deformity. NEUROLOGICAL: AAOx3. Speech clear & appropriate. Follows simple commands w/o difficulty. CN II through XII appear grossly intact. Sensation is intact to light touch to all extremities. Motor strength is 5/5 to all major flexion & extension muscle groups. (Jamee Laughlin) GENERAL: Awake & alert, sitting in the chair w/family. Normal affect. Readily interacts. No apparent distress. HEENT: Normocephalic, scalp mildly TTP at the crown and occiput. PERRLA 3 mm brisk, EOMI. MMM & pink, tongue midline to protrusion. MUSCULOSKELETAL: ARAGON spontaneously w/o difficulty. Extremities NTTP. No evident clubbing or deformity. NEUROLOGICAL: AAOx3. Speech clear & appropriate. Follows simple commands w/o difficulty. CN II through XII appear grossly intact. Sensation is intact to light touch to all extremities. Motor strength is 5/5 to all major flexion & extension muscle groups. (Jorgito Crystal MD) Medications Current Medications Current Medications Medications (Trade) Dose Ordered Sig/Franco Route PRN Reason Start Time Stop Time Status Last Admin Dose Admin Sodium Chloride 1,000 ml @ 50 mls/hr Q20H IV 07/26/17 18:00 07/27/17 20:40 Acetaminophen (Tylenol) 650 mg Q6H PRN PO PAIN 1-3 AND/OR FEVER >101F 2/28/18 18:00 07/27/17 04:25 Fentanyl Citrate (fentaNYL INJ) 50 mcg Q1H PRN IV PUSH Pain scale 8-10 &/or sedation 07/26/17 18:00 07/29/17 05:05 Ondansetron HCl (Zofran Inj) 4 mg Q6H PRN IV PUSH NAUSEA OR VOMITING 07/26/17 18:00 Albuterol/ Ipratropium (Duoneb Neb) 1 ampule Q4HR NEB PRN INH WHEEZING 07/26/17 18:00 Miscellaneous Information 1 Q361D XX 07/26/17 18:00 07/26/17 18:00 Chlorhexidine Gluconate (Chlorhexidine 2% Cloth) 3 pack Taper DAILY@04 TOP 07/27/17 04:00 07/23/18 03:59 07/27/17 04:08 Chlorhexidine Gluconate (Chlorhexidine 2% Cloth) 3 pack UNSCH PRN TOP HYGIENIC CARE 07/26/17 18:00 Senna/Docusate Sodium (Halima-Colace) 1 tab BID PO 07/26/17 21:00 07/29/17 09:08 Magnesium Hydroxide (Milk Of Magnesia Liq) 30 ml Q12H PRN PO Mild constipation 07/26/17 18:00 Sennosides (Senokot) 17.2 mg Q12H PRN PO Moderate constipation 07/26/17 18:00 Bisacodyl (Dulcolax Supp) 10 mg DAILY PRN RECTAL SEVERE CONSITIPATION 07/26/17 18:00 Lactulose (Lactulose Liq) 30 ml DAILY PRN PO SEVERE CONSITIPATION 07/26/17 18:00 Losartan Potassium (Cozaar) 100 mg DAILY PO 07/27/17 09:00 07/29/17 09:08 Clonidine (Catapres) 0.1 mg Q6H PRN PO SBP > 160 07/26/17 19:00 07/28/17 22:52 Labetalol HCl (Trandate Inj) 20 mg Q2H PRN IV SBP > 160` 07/26/17 22:45 07/28/17 22:53 Famotidine (Pepcid) 10 mg Q12HR PO 07/27/17 21:00 07/29/17 09:07 Trazodone HCl (Desyrel) 25 mg HS PRN PO insomnia 07/28/17 21:00 07/28/17 20:57 Oxycodone/ Acetaminophen (Percocet 5-325 Mg) 1 tab Q6H PRN PO Pain 6-10 07/28/17 11:30 07/29/17 10:15 Miscellaneous (Pill Splitter) 1 ea UNSCH PRN OTHER SEE LABEL COMMENTS 07/28/17 11:30 Amlodipine Besylate (Norvasc) 5 mg DAILY PO 07/29/17 10:15 (Jamee Laughlin) Current Medications Current Medications Morphine Sulfate (Morphine Inj) 2 mg STK-MED ONCE .ROUTE Last administered on at 17:43; Start 07/26/17 at 17:43; Stop 07/26/17 at 17:44; Status DC Sodium Chloride 1,000 ml @ 50 mls/hr Q20H IV Last administered on 07/27/17at 20: 40; Start 07/26/17 at 18:00 Acetaminophen (Tylenol) 650 mg Q6H PRN PO PAIN 1-3 AND/OR FEVER >101F Last administered on 07/31/17at 05:49; Start 07/26/17 at 18:00 Morphine Sulfate (Morphine Inj) 2 mg Q2H PRN IV PUSH PAIN SCALE 4 TO 7 Last administered on 07/28/17at 08:14; Start 07/26/17 at 18:45; Stop 07/28/17 at 08:46; Status DC Fentanyl Citrate (fentaNYL INJ) 50 mcg Q1H PRN IV PUSH Pain scale 8-10 &/or sedation Last administered on 07/29/17at 05:05; Start 07/26/17 at 18:00 Famotidine (Pepcid) 20 mg Q12HR PO Last administered on 07/27/17at 09:19; Start 07/26/17 at 21:00; Stop 07/27/17 at 11:40; Status DC Ondansetron HCl (Zofran Inj) 4 mg Q6H PRN IV PUSH NAUSEA OR VOMITING; Start at 18:00 Albuterol/ Ipratropium (Duoneb Neb) 1 ampule Q4HR NEB PRN INH WHEEZING; Start 07/26/17 at 18:00 Miscellaneous Information 1 Q361D XX Last administered on 07/26/17 18:00; Start 07/26/17 at 18:00 Chlorhexidine Gluconate (Chlorhexidine 2% Cloth) 3 pack Taper DAILY@04 TOP Last administered on 07/27/17 04:08; Start 07/27/17 at 04:00; Stop 07/23/18 at 03 :59 Chlorhexidine Gluconate (Chlorhexidine 2% Cloth) 3 pack UNSCH PRN TOP HYGIENIC CARE; Start 07/26/17 at 18:00 Senna/Docusate Sodium (Halima-Colace) 1 tab BID PO Last administered on 07/31/17 09:12; Start 07/26/17 at 21:00 Magnesium Hydroxide (Milk Of Magnesia Liq) 30 ml Q12H PRN PO Mild constipation Last administered on 07/31/17 09:27; Start 07/26/17 at 18:00 Sennosides (Senokot) 17.2 mg Q12H PRN PO Moderate constipation Last administered on 07/29/17 18:14; Start 07/26/17 at 18:00 Bisacodyl (Dulcolax Supp) 10 mg DAILY PRN RECTAL SEVERE CONSITIPATION; Start at 18:00 Lactulose (Lactulose Liq) 30 ml DAILY PRN PO SEVERE CONSITIPATION; Start at 18:00 Losartan Potassium (Cozaar) 100 mg DAILY PO Last administered on 07/31/17 09:14 ; Start 07/27/17 at 09:00 Trazodone HCl (Desyrel) 50 mg HS PO Last administered on 07/27/17 21:00; Start 07/26/17 at 21:00; Stop 07/28/17 at 08:46; Status DC Clonidine (Catapres) 0.1 mg Q6H PRN PO SBP > 160 Last administered on 07/31/17 09:13; Start 07/26/17 at 19:00 Labetalol HCl (Trandate Inj) 20 mg Q2H PRN IV SBP > 160` Last administered on 16:07; Start 07/26/17 at 22:45 Sodium Chloride 500 ml @ 999 mls/hr Q31M ONCE IV Last administered on 3/1/ 18at 06:45; Start 07/27/17 at 07:30; Stop 07/27/17 at 08:00; Status DC Famotidine (Pepcid) 10 mg Q12HR PO Last administered on 07/31/17at 09:15; Start 07/27/17 at 21:00 Trazodone HCl (Desyrel) 25 mg HS PRN PO insomnia Last administered on 07/31/17at 00:22; Start 07/28/17 at 21:00 Oxycodone/ Acetaminophen (Percocet 5-325 Mg) 1 tab Q6H PRN PO Pain 6-10 Last administered on 07/31/17at 09:27; Start 07/28/17 at 11:30 Miscellaneous (Pill Splitter) 1 ea UNSCH PRN OTHER SEE LABEL COMMENTS; Start at 11:30 Sodium Chloride (Baby [place] Saline 0.65% Malcolm Drp/ [place]) 6 drop ONCE ONCE EACH NARE ; Start 07/28/17 at 11:45; Stop 07/28/17 at 13:45; Status DC Amlodipine Besylate (Norvasc) 5 mg DAILY PO Last administered on 07/29/17at 11:37 ; Start 07/29/17 at 10:15; Stop 07/30/17 at 08:36; Status DC Nifedipine (Procardia Xl) 30 mg DAILY PO Last administered on 07/31/17at 09:13; Start 07/30/17 at 09:00 (Jorgito Crystal MD) Medical Decision Making MDM Remarks 81 y/o female Traumatic brain injury HTN CT brain demonstrates right frontal subdural hematoma, bilateral frontoparietal subarachnoid hemorrhage w/trace intraventricular hemorrhage. No midline shift, hydrocephalus or herniation. (Jamee Laughlin) Plan Plan Remarks cont medical management - blood pressure control stable for discharge home from neurosurgical standpoint when medically cleared outpatient f/u CT scan of the head next couple of weeks dw family in room (Jamee Laughlin) Attending Statement Continue neuro checks in a serial fashion. Continue nonsurgical management of traumatic brain injury. I have reviewed her radiological studies Continue treatment of her arterial hypertension Pulmonary. Continue aggressive pulmonary toilette, nasotracheal suction, and breathing treatments with nebulizers. Daily PT and OT Renal. Continue to monitor closely urine output, BUN and creatinine Endocrine. Continue to Monitor serial Acu checks and SSI as needed in detail ID continue to monitor for signs of infection Continue Protonix for stress ulcer prophylaxis Continue Luciano hose and SCD's for DVT prophylaxis Further recommendations will be provided depending on the patient's clinical evaluation and follow up studies. The exam, history, and the medical decision-making described in the above note were completed with the assistance of the mid-level provider. I reviewed and agree with the findings presented. I attest that I had a [id number] encounter with the patient on the same day, and personally performed and documented my assessment and findings in the medical record. (Jorgito Crystal MD) Jamee Laughlin Jul 29, 2017 11:10 Jorgito Crystal MD Jul 31, 2017 12:42
[2017-07-29] MEDS: ACETAMINOPHEN 325 MG TAB PO PRN ×2 (14:39→21:33)
[2017-07-29 15:35] LABS: AUTOMATED NEUTROPHIL # 6.8 TH/MM3 (1.8-7.7); BASOPHIL # 0.1 TH/MM3 (0-0.2); BASOPHIL % 1.2 % (0.0-2.0); EOSINOPHIL # 0.4 TH/MM3 (0-0.4); EOSINOPHIL % 3.8 % (0.0-4.0); HEMATOCRIT 34.7 % (35.0-46.0); HEMOGLOBIN 12.4 GM/DL (11.6-15.3); LYMPH % 15.3 % (9.0-44.0); LYMPHOCYTE # 1.5 TH/MM3 (1.0-4.8); MEAN CELL VOLUME 93.4 FL (80.0-100.0); MEAN CORPUSCULAR HEMOGLOBIN 33.3 PG (27.0-34.0); MEAN CORPUSCULAR HGB CONC 35.7 % (32.0-36.0); MONO % 10.9 % (0.0-8.0); MONOCYTE # 1.1 TH/MM3 (0-0.9); NEUT % 68.8 % (16.0-70.0); PLATELET COUNT 174 TH/MM3 (150-450); RED BLOOD COUNT 3.72 MIL/MM3 (4.00-5.30); RED CELL DISTRIBUTION WIDTH 13.2 % (11.6-17.2); WHITE BLOOD COUNT 9.9 TH/MM3 (4.0-11.0)
[2017-07-29] MEDS: LABETALOL HCL 100 MG/20 ML VIAL IV PRN (16:07)
[2017-07-29] MEDS: traZODone HCL 50 MG TAB PO PRN (21:33)
[2017-07-29] MEDS: cloNIDine HCL 0.1 MG TAB PO PRN (23:46)
[2017-07-30] VITALS (9 sets, daily range): BP systolic 124–198; BP diastolic 60–89; PULSE 60–75; RESP 18; TEMP 97.5–99.7; O2SAT 95–96
[2017-07-30] MEDS: SODIUM CHLOR 0.9% 1000 ML INJ 1,000 ML IV SCH ×2 (02:11→19:37)
[2017-07-30] MEDS: CHLORHEXIDINE GLUCONATE 2 % 1 PACK (2 CLOTHS) TOP SCH (02:12)
[2017-07-30] MEDS: cloNIDine HCL 0.1 MG TAB PO PRN ×2 (05:41→18:12)
[2017-07-30] MEDS: ACETAMINOPHEN 325 MG TAB PO PRN ×2 (06:22→13:00)
--- NOTE | 2017-07-30 08:39 | HHI.PR ---
Subjective Remarks in no acute distress. denies pain or headache. BP trend noted. daughter at the bedside. d/w the RN. Objective Vitals Vital Signs Date Time Temp Pulse Resp B/P (MAP) Pulse Ox O2 Delivery O2 Flow Rate FiO2 07/30/17 08:00 98.6 68 18 175/73 (107) 95 07/30/17 05:40 97.5 73 18 196/88 (124) 96 07/30/17 01:26 143/60 (87) 07/29/17 23:43 98.4 77 18 185/81 (115) 94 07/29/17 22:21 93 Room Air 07/29/17 21:41 98.0 73 17 172/72 (105) 94 07/29/17 21:36 93 Room Air 07/29/17 20:45 93 21 07/29/17 17:15 16 07/29/17 16:01 20 07/29/17 16:00 98.3 69 18 164/70 (101) 92 07/29/17 15:00 64 07/29/17 12:00 98.1 66 14 153/69 (97) 97 07/29/17 11:00 56 11 176/77 (110) 97 07/29/17 10:00 60 19 148/68 (94) 97 07/29/17 10:00 65 07/29/17 09:00 65 24 174/74 (107) 97 I/O 07/29/17 07/29/17 07/29/17 07/30/17 07/30/17 07/30/17 07:00 15:00 23:00 07:00 15:00 23:00 Intake Total 240 ml 500 ml Balance 240 ml 500 ml Intake Oral 240 ml 500 ml # Voids 2 4 2 # Bowel Movements 0 Result Diagram: 07/29/17 1516 07/27/17 0422 Imaging Last Impressions Head CT 07/27/17 0600 Signed Impressions: Service Date/Time: July 05:14 - CONCLUSION: 1. Focal 5 mm right frontal mid convexity extra-axial hematoma, likely subdural. 2. Subarachnoid products in the frontoparietal mid to low convexities bilaterally. 3. Trace intraventricular hemorrhage. 4. No midline shift, hydrocephalus, or herniation. Eris Rose MD Objective Remarks GENERAL: This is a well-nourished, well-developed patient, in no apparent distress. CARDIOVASCULAR: Regular rate and regular rhythm without murmurs, gallops, or rubs. RESPIRATORY: Clear to auscultation. Breath sounds equal bilaterally. No wheezes , rales, or rhonchi. GASTROINTESTINAL: Abdomen soft, non-tender, nondistended. Normal, active bowel sounds MUSCULOSKELETAL: Extremities without clubbing, cyanosis, or edema. NEURO: awake and alert. Medications and IVs Inpatient Medications Acetaminophen (Tylenol) 650 mg Q6H PRN PO PAIN 1-3 AND/OR FEVER >101F Last administered on 07/30/17 06:22; Start 07/26/17 at 18:00 Albuterol/ Ipratropium (Duoneb Neb) 1 ampule Q4HR NEB PRN INH WHEEZING; Start 07/26/17 at 18:00 Amlodipine Besylate (Norvasc) 5 mg DAILY PO Last administered on 07/29/17at 11:37 ; Start 07/29/17 at 10:15 Bisacodyl (Dulcolax Supp) 10 mg DAILY PRN RECTAL SEVERE CONSITIPATION; Start at 18:00 Chlorhexidine Gluconate (Chlorhexidine 2% Cloth) 3 pack UNSCH PRN TOP HYGIENIC CARE; Start 07/26/17 at 18:00 Clonidine (Catapres) 0.1 mg Q6H PRN PO SBP > 160 Last administered on 07/30/17at 05:41; Start 07/26/17 at 19:00 Famotidine (Pepcid) 10 mg Q12HR PO Last administered on 07/29/17at 21:00; Start 07/27/17 at 21:00 Fentanyl Citrate (fentaNYL INJ) 50 mcg Q1H PRN IV PUSH Pain scale 8-10 &/or sedation Last administered on 07/29/17 05:05; Start 07/26/17 at 18:00 Labetalol HCl (Trandate Inj) 20 mg Q2H PRN IV SBP > 160` Last administered on at 16:07; Start 07/26/17 at 22:45 Lactulose (Lactulose Liq) 30 ml DAILY PRN PO SEVERE CONSITIPATION; Start at 18:00 Losartan Potassium (Cozaar) 100 mg DAILY PO Last administered on 07/29/17 09:08 ; Start 07/27/17 at 09:00 Magnesium Hydroxide (Milk Of Magnfrancoise Liq) 30 ml Q12H PRN PO Mild constipation ; Start 07/26/17 at 18:00 Miscellaneous (Pill Splitter) 1 ea UNSCH PRN OTHER SEE LABEL COMMENTS; Start at 11:30 Miscellaneous Information 1 Q361D XX Last administered on 07/26/17at 18:00; Start 07/26/17 at 18:00 Morphine Sulfate (Morphine Inj) 2 mg Q2H PRN IV PUSH PAIN SCALE 4 TO 7 Last administered on 07/28/17 08:14; Start 07/26/17 at 18:45; Stop 07/28/17 at 08:46; Status DC Ondansetron HCl (Zofran Inj) 4 mg Q6H PRN IV PUSH NAUSEA OR VOMITING; Start at 18:00 Oxycodone/ Acetaminophen (Percocet 5-325 Mg) 1 tab Q6H PRN PO Pain 6-10 Last administered on 07/29/17at 23:46; Start 07/28/17 at 11:30 Senna/Docusate Sodium (Halima-Colace) 1 tab BID PO Last administered on 07/29/17 21:00; Start 07/26/17 at 21:00 Sennosides (Senokot) 17.2 mg Q12H PRN PO Moderate constipation Last administered on 07/29/17 18:14; Start 07/26/17 at 18:00 Sodium Chloride (Baby [place] Saline 0.65% [facility]/ [place]) 6 drop ONCE ONCE EACH NARE ; Start 07/28/17 at 11:45; Stop 07/28/17 at 13:45; Status DC Trazodone HCl (Desyrel) 25 mg HS PRN PO insomnia Last administered on 07/29/17at 21:33; Start 07/28/17 at 21:00 A/P Assessment and Plan A/P 1. Traumatic SDH/2. Mechanical fall. continue with neuro-checks- cleared by neurosurgery for discharge with repeat CT head in two weeks. continue PT. 2. Hypertensive urgency- improved but BP still not well controlled. continue Losartan- stop Amlodipine and start on Procardia XL. will continue to monitor and adjust the regimen as needed. 3. S/P bilateral carotid endarterectomies, left carotid stent. DVT prophylaxis with SCD's- no chemical prophylaxis due to cerebral bleed. Discharge Planning not ready for discharge today; BP still uncontrolled. dc home tomorrow if BP better. case management for [facility]. Trung Tran MD Jul 30, 2017 08:39
[2017-07-30] MEDS: LOSARTAN 50 MG TAB PO SCH (09:19)
[2017-07-30] MEDS: NIFEdipine 30 MG SUSTAINED RELEASE TAB PO SCH (09:19)
[2017-07-30] MEDS: DOCUSATE SODIUM 50 MG/SENNA 8.6 MG TAB PO SCH ×2 (09:19→19:35)
[2017-07-30] MEDS: FAMOTIDINE 20 MG TAB PO SCH ×2 (09:19→19:34)
[2017-07-30] MEDS: oxyCODONE/ACETAMINOPHEN 5 MG/325 MG TAB PO PRN (19:36)
[2017-07-31] VITALS (7 sets, daily range): BP systolic 140–186; BP diastolic 63–84; PULSE 49–75; RESP 16–18; TEMP 97.2–99.7; O2SAT 94–96
[2017-07-31] MEDS: traZODone HCL 50 MG TAB PO PRN (00:22)
[2017-07-31] MEDS: cloNIDine HCL 0.1 MG TAB PO PRN ×2 (00:22→09:13)
[2017-07-31] MEDS: CHLORHEXIDINE GLUCONATE 2 % 1 PACK (2 CLOTHS) TOP SCH (03:08)
[2017-07-31] MEDS: ACETAMINOPHEN 325 MG TAB PO PRN ×2 (05:49→16:37)
--- NOTE | 2017-07-31 07:56 | HHI.PR ---
Subjective Remarks in no acute distress. denies pain or headache. BP trend noted. d/w the daughter . Objective Vitals Vital Signs Date Time Temp Pulse Resp B/P (MAP) Pulse Ox O2 Delivery O2 Flow Rate FiO2 07/31/17 05:37 99.7 75 18 () 96 140/70 (93) 07/31/17 02:27 150/63 (92) 07/31/17 00:19 97.7 75 18 186/84 (118) 96 172/76 (108) 07/30/17 22:54 75 07/30/17 22:41 Room Air 07/30/17 19:40 157/62 (93) 07/30/17 19:10 99.7 75 18 198/89 (125) 95 07/30/17 16:00 97.6 61 18 167/70 (102) 95 07/30/17 12:00 98.4 66 18 124/77 (93) 95 07/30/17 10:18 60 07/30/17 09:32 Room Air 07/30/17 08:00 98.6 68 18 175/73 (107) 95 I/O 07/30/17 07/30/17 07/30/17 07/31/17 07/31/17 07/31/17 07:00 15:00 23:00 07:00 15:00 23:00 # Voids 2 3 # Bowel Movements 0 Result Diagram: 07/29/17 1516 07/27/17 0422 Imaging Last Impressions Head CT 07/27/17 0600 Signed Impressions: Service Date/Time: July 05:14 - CONCLUSION: 1. Focal 5 mm right frontal mid convexity extra-axial hematoma, likely subdural. 2. Subarachnoid products in the frontoparietal mid to low convexities bilaterally. 3. Trace intraventricular hemorrhage. 4. No midline shift, hydrocephalus, or herniation. Eris Rose MD Objective Remarks GENERAL: This is a well-nourished, well-developed patient, in no apparent distress. CARDIOVASCULAR: Regular rate and regular rhythm without murmurs, gallops, or rubs. RESPIRATORY: Clear to auscultation. Breath sounds equal bilaterally. No wheezes , rales, or rhonchi. GASTROINTESTINAL: Abdomen soft, non-tender, nondistended. Normal, active bowel sounds MUSCULOSKELETAL: Extremities without clubbing, cyanosis, or edema. NEURO: awake and alert. Procedures none Medications and IVs Inpatient Medications Acetaminophen (Tylenol) 650 mg Q6H PRN PO PAIN 1-3 AND/OR FEVER >101F Last administered on 07/31/17at 05:49; Start 07/26/17 at 18:00 Albuterol/ Ipratropium (Duoneb Neb) 1 ampule Q4HR NEB PRN INH WHEEZING; Start 07/26/17 at 18:00 Amlodipine Besylate (Norvasc) 5 mg DAILY PO Last administered on 07/29/17at 11:37 ; Start 07/29/17 at 10:15; Stop 07/30/17 at 08:36; Status DC Bisacodyl (Dulcolax Supp) 10 mg DAILY PRN RECTAL SEVERE CONSITIPATION; Start at 18:00 Chlorhexidine Gluconate (Chlorhexidine 2% Cloth) 3 pack UNSCH PRN TOP HYGIENIC CARE; Start 07/26/17 at 18:00 Clonidine (Catapres) 0.1 mg Q6H PRN PO SBP > 160 Last administered on 07/31/17at 00:22; Start 07/26/17 at 19:00 Famotidine (Pepcid) 10 mg Q12HR PO Last administered on 07/30/17at 19:34; Start 07/27/17 at 21:00 Fentanyl Citrate (fentaNYL INJ) 50 mcg Q1H PRN IV PUSH Pain scale 8-10 &/or sedation Last administered on 07/29/17 05:05; Start 07/26/17 at 18:00 Labetalol HCl (Trandate Inj) 20 mg Q2H PRN IV SBP > 160` Last administered on at 16:07; Start 07/26/17 at 22:45 Lactulose (Lactulose Liq) 30 ml DAILY PRN PO SEVERE CONSITIPATION; Start at 18:00 Losartan Potassium (Cozaar) 100 mg DAILY PO Last administered on 07/30/17 09:19 ; Start 07/27/17 at 09:00 Magnesium Hydroxide (Milk Of Magnesia Liq) 30 ml Q12H PRN PO Mild constipation ; Start 07/26/17 at 18:00 Miscellaneous (Pill Splitter) 1 ea UNSCH PRN OTHER SEE LABEL COMMENTS; Start at 11:30 Miscellaneous Information 1 Q361D XX Last administered on 07/26/17 18:00; Start 07/26/17 at 18:00 Morphine Sulfate (Morphine Inj) 2 mg Q2H PRN IV PUSH PAIN SCALE 4 TO 7 Last administered on 07/28/17 08:14; Start 07/26/17 at 18:45; Stop 07/28/17 at 08:46; Status DC Nifedipine (Procardia Xl) 30 mg DAILY PO Last administered on 07/30/17 09:19; Start 07/30/17 at 09:00 Ondansetron HCl (Zofran Inj) 4 mg Q6H PRN IV PUSH NAUSEA OR VOMITING; Start at 18:00 Oxycodone/ Acetaminophen (Percocet 5-325 Mg) 1 tab Q6H PRN PO Pain 6-10 Last administered on 07/30/17 19:36; Start 07/28/17 at 11:30 Senna/Docusate Sodium (Halima-Colace) 1 tab BID PO Last administered on 07/30/17 19:35; Start 07/26/17 at 21:00 Sennosides (Senokot) 17.2 mg Q12H PRN PO Moderate constipation Last administered on 07/29/17 18:14; Start 07/26/17 at 18:00 Sodium Chloride (Baby [place] Saline 0.65% [facility]/ [place]) 6 drop ONCE ONCE EACH NARE ; Start 07/28/17 at 11:45; Stop 07/28/17 at 13:45; Status DC Trazodone HCl (Desyrel) 25 mg HS PRN PO insomnia Last administered on 07/31/17 00:22; Start 07/28/17 at 21:00 A/P Assessment and Plan A/P 1. Traumatic SDH/2. Mechanical fall. continue with neuro-checks- cleared by neurosurgery for discharge with repeat CT head in two weeks. continue PT. 2. Hypertensive urgency- overall improved . continue Losartan- continue Procardia XL. will continue to monitor and adjust the regimen as needed. 3. S/P bilateral carotid endarterectomies, left carotid stent. DVT prophylaxis with SCD's- no chemical prophylaxis due to cerebral bleed. Discharge Planning dc home later this evening if BP stable. see med list. f/u; pcp and neurosurgery. will have C. d/w the patient and the daughter. Trung Tran MD Jul 31, 2017 07:56
[2017-07-31] MEDS ORDERED: NIFE30TA8 PO (07:57)
--- NOTE | 2017-07-31 08:01 | HHI.DS ---
Discharge Summary Admission Date Jul 26, 2017 at 17:38 Discharge Date: Jul 31, 2017 Admitting Diagnosis Traumatic SDH, hypertensive urgency (1) Subdural hematoma ICD Code: I62.00 - Nontraumatic subdural hemorrhage, unspecified Diagnosis: Principal Procedures none Brief History - From Admission 81 y/o woman tripped in her garden and hit her forehead. No LOC, syncope, seizures, vomiting. Presented to ED at [facility] in [place] and CT head revealed small right frontal SDH. BP 217/116. Arrived here [facility] 15 around 1700. Significant history of carotid occlusive disease including bilateral endarterectomies and left stent. Her sx's were TIAs in the past. She is closely followed by a warehouse shipper at [facility] who monitors and treats her hypertension and carotid disease. CBC/BMP: 07/29/17 1516 07/27/17 0422 Significant Findings Laboratory Tests Test 07/29/17 15:16 Red Blood Count 3.72 MIL/MM3 (4.00-5.30) Hematocrit 34.7 % (35.0-46.0) Monocytes (%) (Auto) 10.9 % (0.0-8.0) Monocytes # (Auto) 1.1 TH/MM3 (0-0.9) Imaging Last Impressions Head CT 07/27/17 0600 Signed Impressions: Service Date/Time: July 05:14 - CONCLUSION: 1. Focal 5 mm right frontal mid convexity extra-axial hematoma, likely subdural. 2. Subarachnoid products in the frontoparietal mid to low convexities bilaterally. 3. Trace intraventricular hemorrhage. 4. No midline shift, hydrocephalus, or herniation. Eris Rose MD PE at Discharge GENERAL: This is a well-nourished, well-developed patient, in no apparent distress. CARDIOVASCULAR: Regular rate and regular rhythm without murmurs, gallops, or rubs. RESPIRATORY: Clear to auscultation. Breath sounds equal bilaterally. No wheezes , rales, or rhonchi. GASTROINTESTINAL: Abdomen soft, non-tender, nondistended. Normal, active bowel sounds MUSCULOSKELETAL: Extremities without clubbing, cyanosis, or edema. NEURO: awake and alert. Hospital Course 1. Traumatic SDH/2. Mechanical fall. continue with neuro-checks- cleared by neurosurgery for discharge with repeat CT head in two weeks. continue PT. 2. Hypertensive urgency- overall improved . continue Losartan- continue Procardia XL. will continue to monitor and adjust the regimen as needed. 3. S/P bilateral carotid endarterectomies, left carotid stent. DVT prophylaxis with SCD's- no chemical prophylaxis due to cerebral bleed. Pt Condition on Discharge: Fair Discharge Disposition: Disch w/ Home Health Serv Discharge Time: <= 30 minutes Discharge Instructions DIET: Follow Instructions for: Heart Healthy Diet Activities you can perform: Regular-No Restrictions Trung Tran MD Jul 31, 2017 08:01
[2017-07-31] MEDS: DOCUSATE SODIUM 50 MG/SENNA 8.6 MG TAB PO SCH (09:12)
[2017-07-31] MEDS: NIFEdipine 30 MG SUSTAINED RELEASE TAB PO SCH (09:13)
[2017-07-31] MEDS: LOSARTAN 50 MG TAB PO SCH (09:14)
[2017-07-31] MEDS: FAMOTIDINE 20 MG TAB PO SCH (09:15)
[2017-07-31] MEDS: oxyCODONE/ACETAMINOPHEN 5 MG/325 MG TAB PO PRN (09:27)
[2017-07-31] MEDS ORDERED: OXYC1TAB63 PO (12:51)
[2017-07-31] MEDS ORDERED: COZA50TA PO (12:51)
--- NOTE | 2017-08-01 | HHI.NSPN ---
History Chief Complaint: Frontal headache Interval History 81-year-old female status post mild traumatic brain injury. Small right frontal subdural hematoma without significant mass effect. Exam Results Vital Signs Date Time Temp Pulse Resp B/P (MAP) Pulse Ox O2 Delivery O2 Flow Rate FiO2 07/31/17 15:54 49 07/31/17 12:33 97.2 16 154/68 (96) 94 07/30/17 22:41 Room Air 07/29/17 20:45 21 07/29/17 08:15 2.00 Physical Examination GENERAL: Awake & alert, sitting in the chair w/family. Normal affect. Readily interacts. No apparent distress. HEENT: No significant scalp edema or tenderness. MUSCULOSKELETAL: No extremity edema NEUROLOGICAL: AAOx3. Speech clear & appropriate. Follows simple commands w/o difficulty. Facial motor movement symmetric Sensation is intact to light touch to all extremities. Motor strength is 5/5 to all major flexion & extension muscle groups. Medical Decision Making Impression and Plan Impression: 1. Improving slowly following traumatic brain injury with focal right frontal subdural hematoma without significant mass effect. Plan: Findings were discussed at length with the patient's 2 daughters as well as with the patient today on 07/31/2017 in her room. She is stable for discharge from neurosurgical standpoint. Recommend follow-up CT scan of the head in approximately 2 weeks. Finally states that they are not aware of a local neurosurgeon that can see them so we will try to arrange this through our office and I will look at the images and recommended follow-up as needed. She will be going back to [place] with her daughter. Rene Harrell MD Aug 01, 2017 00:00
--- NOTE | 2017-08-01 13:46 | PQ ---
Physician Query Response Document PATIENT: CHELE KEITH : 1935 ADMIT DATE: 07/26/2017 5:38 PM DISCH DATE: 07/31/2017 5:04 PM RESPONDING PROVIDER #: [email or web address] QUERY TEXT: Clarification of Clinical Diagnostic Findings Hypertensive emergency in the setting of SDH treated with IV antihypertensives and monitoring in ICU Other explanation of clinical findings. Unable to determine (no explanation for clinical findings). The medical record reflects the following clinical findings, treatment, and risk factors. * Clinical Indicators Headache SDH BP 217/116 * Risk Factors HTN Hx of TIA * Treatment IV Trandate q 2 hr x 6 doses 07/26 - 07/29 Maintain SBP < 160, restart home antihypertensive s, catapress po q 6 hr PRN x 8 doses 07/26 to 07/31 The patient's Clinical Indicators include: Please clarify and document your clinical opinion in the progress notes and discharge summary includi ng the definitive and/or presumptive diagnosis (suspected or probable), related to the above clinical findings. Please include clinical findings supporting your diagnosis. Thank you, Gladis Salazar CDS: Gladis Salazar Patient Unit: [id number] Contact Number: [phone] Query created by: Gladis Salazar on 07/31/2017 2:58 PM RESPONSE TEXT: Traumatic subdural hematoma/ hypertensive urgency. Electronically signed by: Trung Tran MD 08/01/2017 1:42 PM
== END 2017-07-31 17:04 | disposition home health service (06) | DRG 87 ==
LOC: N03B 17:38 → N05B 07-29 22:02
PROVIDERS: ADMIT Internal Medicine; ATTEND Internal Medicine
DX: S06.5X0A Traumatic subdural hemorrhage without loss of consciousness, initial encounter (principal); I65.23 Occlusion and stenosis of bilateral carotid arteries; I10 Essential (primary) hypertension; I16.0 Hypertensive urgency; R40.2412 Glasgow coma scale score 13-15, at arrival to emergency department; W01.0XXA Fall on same level from slipping, tripping and stumbling without subsequent striking against object, initial encounter; N28.9 Disorder of kidney and ureter, unspecified; Z86.73 Personal history of transient ischemic attack (TIA), and cerebral infarction without residual deficits
CPT/HCPCS: 70450; 80048; 83735; 85025; J2270; J3010; J7030; J7040